=== PATIENT | male | born 1990 | race Caucasian/White ===

== ENCOUNTER 2019-12-18 18:25 | Emergency (ER) | payer BC ==
[~2019-12-18] VITALS: Ht 170.2 cm; Wt 66.2 kg
--- NOTE | 2019-12-18 18:33 | NUR ---
CAME IN FOR SUDDEN L SIDED CHEST "TINGLING SENSATION" x 2 DAYS, PATIENT STATES IT HAS BEEN ONGOING ON AND OFF x 1 MONTH. TO ER BED 12, HOOKED TO MONITOR, CHANGED TO HOSP GOWN, WARM BLANKET PROVIDED, AWAITING MD RODRIGUEZ.
--- NOTE | 2019-12-18 19:24 | NUR ---
MACHINE I CUTTER DEGRASSE AT BEDSIDE
[2019-12-18 19:44] LABS: BASOPHILS # (AUTO) 0.1 /CMM (0.0-0.2); BASOPHILS % (AUTO) 0.5 % (0.0-2.0); HEMATOCRIT 41 % (39-51); HEMOGLOBIN 13.6 g/dL (13.5-17.5); LYMPHOCYTES # (AUTO) 1.5 /CMM (0.8-4.8); LYMPHOCYTES % (AUTO) 14.4 % (20.0-44.0); MEAN CORPUSCULAR HGB CONC 34 g/dl (31.0-36.0); MEAN CORPUSCULAR VOLUME 85 fL (80-96); MONOCYTES # (AUTO) 0.6 /CMM (0.1-1.30); MONOCYTES % (AUTO) 5.3 % (2.0-12.0); NEUTROPHILS # (AUTO) 8.3 /CMM (1.8-8.9); NEUTROPHILS % (AUTO) 78.8 % (43.0-81.0); PLATELET COUNT (AUTO) 224 /CMM (150-450); RED BLOOD CELL COUNT(AUTO) 4.75 MIL/uL (4.5-6.0); WHITE BLOOD COUNT (AUTO) 10.6 K/uL (4.3-11.0)
[2019-12-18 19:52] LABS: CARBON DIOXIDE 30 mmol/L (21-32); CHLORIDE 104 mmol/L (98-107); CREATININE 1.1 mg/dL (0.6-1.3); GLUCOSE 99 mg/dL (74-106); SODIUM SERUM 140 mmol/L (136-145); UREA NITROGEN, BLOOD 14 mg/dL (7-18)
[2019-12-18 19:57] LABS: ALANINE AMINOTRANSFERASE 32 U/L (12-78); ALBUMIN 4.2 g/dL (3.4-5.0); ALKALINE PHOSPHATASE 45 U/L (46-116); ASPARTATE AMINOTRANSFERASE 14 U/L (15-37); BILIRUBIN,DIRECT 0.1 mg/dL (0.0-0.2); BILIRUBIN,TOTAL 0.5 mg/dL (0.2-1.0); TOTAL PROTEIN, SERUM 7.3 g/dL (6.4-8.2)
--- NOTE | 2019-12-18 20:42 | NUR ---
patient in bed awake, watching television, hooked to monitor. kept warm and comfortable, will continue to monitor accordingly
--- NOTE | 2019-12-18 22:27 | NUR ---
patient in bed awake, watching television, hooked to monitor. kept warm and comfortable, will continue to monitor accordingly
--- NOTE | 2019-12-18 23:11 | NUR ---
IV removed. Catheter intact and site benign. Pressure and 4x4 applied to site. No bleeding noted.Patient discharged to home in stable condition. Written and verbal after care instructions given. Patient verbalizes understanding of instruction.
[2019-12-18 23:12] VITALS: BP 130/65
== END 2019-12-18 23:13 | disposition home or self-care (01) ==
LOC: ER 18:25
DX: R07.89 Other chest pain (principal)
CPT/HCPCS: 36415; 71045-TC; 80048-TC; 80076-TC; 84484-TC; 85025-TC